=== PATIENT | female | born 1985 | race Caucasian/White ===

== ENCOUNTER 2016-07-19 23:30 | Inpatient (IN) ==
[~2016-07-19 23:30] MED LIST: Famotidine 20 MG/2 ML VIAL IVP PRN; Naloxone 0.4 MG/ML INJ IVP PRN; Ondansetron 4 MG/2 ML VIAL IVP PRN
[2016-07-19 23:39] LABS: Basophils % 0.1 %; Eosinophils % 0.1 %; Hematocrit 30.9 % (35.3-44.9); Hemoglobin 10.2 g/dL (11.5-15.4); Immature Granulocytes % 0.7 % (0-4); Lymphocytes % 19.7 %; Mean Corpuscular Hemoglobin 25.3 pg (28.0-33.3); Mean Corpuscular Volume 76.7 fL (83.0-100.0); Mean Platelet Volume 10.9 fL (9.4-12.4); Monocytes % 6.5 %; Platelet Count 300 K/mcL (140-400); Red Blood Count 4.03 M/mcL (3.82-4.97); Red Cell Distribution Width 16.3 % (11.5-14.5); Segmented Neutrophils % 72.9 %
[2016-07-19] MEDS ORDERED: Oxytocin 20 units/ LR 1000 mL 20 UNIT/1,000 ML BAG IVC ONE (23:57)
[2016-07-20] MEDS ORDERED: Ibuprofen 600 MG TABLET PO PRN (00:34)
[2016-07-20] MEDS ORDERED: Lanolin 28 GM TUBE TP PRN (00:37)
--- NOTE | 2016-07-20 00:40 | OB/GYN Procedure Note ---
Delivery - Delivery Date: 07/20/16 Provider: Hawa Kat Intrapartum events: none Delivery induction: none Delivery augmentation: rupture of membranes Delivery monitor: external FHT, external uterine Anesthesia: none Estimated Blood Loss: 200 - Repair Episiotomy: none Laceration Description: None - Complications Delivery complications: none - Disposition Mom disposition: stable in LDR disposition: stable in LDR - Comments Comments: Pt presented in active labor and progressed rapidly to complete dilation. AROM was performed for moderate amount clear fluid. She pushed well and underwent over intact perineum for viable male weighing 8lbs. 2oz. with apgars 8 at one minute and 9 at five minutes. After the cord stopped pulsing it was clamped and cut by the father. The placenta delivered spontaneous and intact. The vagina and perineum were found to be intact. Mother and baby are stable following delivery.
[2016-07-20] MEDS ORDERED: Oxytocin 20 units/ LR 1000 mL 20 UNIT/1,000 ML BAG IVC ONE ×2 (01:26→02:21)
[2016-07-20] MEDS ORDERED: Oxytocin 20 units/ LR 1000 mL 20 UNIT/1,000 ML BAG IV SCH (02:21)
[2016-07-20] MEDS ORDERED: Measles/Mumps/Rubella Vacc 0.5 ML VIAL SQ PRN (02:21)
[2016-07-20] MEDS ORDERED: Acetaminophen 325 MG TABLET PO PRN (02:21)
[2016-07-20] MEDS ORDERED: Rho Immune Globulin 1,500 UNIT SYRINGE IM PRN (02:21)
[2016-07-20] MEDS: Prenatal Vit/FA 1 EACH TABLET PO SCH (07:41)
--- NOTE | 2016-07-20 13:53 | OB/GYN History & Physical ---
Date of Encounter: 07/20/16 Time of Encounter: 00:00 Assessment and Plan (1) 38 weeks gestation of Current visit: Yes Status: Acute (2) Active labor at term Current visit: Yes Status: Acute Admit for expectant management. History of Present Illness Chief complaint: labor HPI: Ms. Kaur is a 31 year old female who presented at 38w6d with regular contractions. Good FM. No other complaints. labs: B positive antibody screen negative Rubella immune Hepatitis B negative Hepatitis C negative HIV nonreactive Pap had scant cells and needs repeated PP Chlam/Jermain: negative Anatomy scan: normal Glucola: normal GBS negative Past Med Surg Social Fam HX - Past Medical History Medical history: other Psychiatric history: no psych history - Past Surgical History Surgical History: no surgical history - Social History Smoking Status: Never smoker Smokeless Tobacco Status: No Alcohol use: none Drug use: none - Family History Mother Adopted: No Family Member Ethnicity: Non- Living Status: Still Living Hx Family Cardiac Disorders: No Hx Family Respiratory Disorders: No Hx Family Cancer: No Hx Family GI Disorders: No Hx Family Genitourinary Disorders: No Hx Family Endocrine Disorder: No Hx Family Musculoskeletal Disorders: No Hx Family Neuromuscular Disorders: No Hx Family Neurologic Disorders: No Hx Family HEENT Disorders: No Hx Family Autoimmune Disorders: No Hx Family Reproductive Disorders: No Hx Family Psychosocial Disorders: No Hx Family Medical Disorders: No Obstetrical History - Pregnancies : 6 Para: 5 Term: 5 Livin Medications and Allergies Pedi Multivit #22/Vit D3/Vit K [Multivitamins Chewables Tablet] 1 each PO DAILY 03/24/16 [History] Ranitidine HCl [Zantac] 150 mg PO DAILY 07/19/16 [History] Allergies No Known Allergies Allergy (Verified 03/24/16 14:36) Review of System OB All systems PM: reviewed and no additional remarkable complaints except as stated Exam - Vital Signs Vital signs: Initial Vital Signs Temp Pulse Resp BP Pulse Ox 98.3 F 78 16 128/71 99 07/20/16 03:00 07/20/16 03:00 07/20/16 03:00 07/20/16 03:00 07/20/16 03:00 - Constitutional Constitutional: well developed, well nourished - HEENT HEENT: Mucus Membranes Moist - Lungs Respiratory exam: CTAB - Cardiovascular Cardiovascular exam: RRR, +S1, +S2 - Abdomen Abdomen: Present: non tender - Extremities Extremities exam: normal inspection - Vulva Vulva: bilateral: normal - Anus/Rectum Anus/Rectum: Present: normal perianal skin Results Result Diagrams: 07/19/16 23:28 Abnormal lab results WBC 15.1 K/mcL (4.3-11.1) H 07/19/16 23:28 Hgb 10.2 g/dL (11.5-15.4) L 07/19/16 23:28 Hct 30.9 % (35.3-44.9) L 07/19/16 23:28 MCV 76.7 fL (83.0-100.0) L 07/19/16 23:28 MCH 25.3 pg (28.0-33.3) L 07/19/16 23:28 RDW 16.3 % (11.5-14.5) H 07/19/16 23:28 Neutrophils # 11.0 K/mcL (1.6-8.9) H 07/19/16 23:28 All other labs normal. - VTE Reasons for not Prescribing Prophylaxis: Treatment not Indicated - Low risk for VTE
[2016-07-20] MEDS: Ibuprofen 600 MG TABLET PO PRN ×2 (14:16→19:59)
[2016-07-21] MEDS: Ibuprofen 600 MG TABLET PO PRN ×2 (03:18→11:40)
[2016-07-21] MEDS: Prenatal Vit/FA 1 EACH TABLET PO SCH (07:44)
[2016-07-21 08:21] VITALS: BP 108/73
--- NOTE | 2016-07-21 08:45 | Discharge Summary ---
Date of Encounter: 07/21/16 Time of Encounter: 08:43 - Discharge Diagnosis (1) (normal spontaneous vaginal delivery) Priority: Primary Status: Acute Comments: Pt meeting milestones - Discharge Medications Prescriptions: Ibuprofen [Motrin] 600 mg PO Q6HR PRN #60 tablet PRN Reason: Pain Docusate [Colace] 100 mg PO BID #60 capsule Home Medications: Pedi Multivit #22/Vit D3/Vit K [Multivitamins Chewables Tablet] 1 each PO DAILY 03/24/16 [History] Ranitidine HCl [Zantac] 150 mg PO DAILY 07/19/16 [History] Docusate [Colace] 100 mg PO BID #60 capsule 07/21/16 [Rx] Ibuprofen [Motrin] 600 mg PO Q6HR PRN #60 tablet 07/21/16 [Rx] Allergies/Adverse Reactions: Allergies No Known Allergies Allergy (Verified 03/24/16 14:36) Data Procedures and tests throughout hospitalization: Laboratory Tests 07/19/16 23:28 WBC 15.1 H RBC 4.03 Hgb 10.2 L Hct 30.9 L MCV 76.7 L MCH 25.3 L MCHC 33.0 RDW 16.3 H Plt Count 300 MPV 10.9 Immature Gran % 0.7 Seg Neutrophils % 72.9 Lymphocytes % 19.7 Monocytes % 6.5 Eosinophils % 0.1 Basophils % 0.1 Neutrophils # 11.0 H Lymphocytes # 3.0 Monocytes # 1.0 Eosinophils # 0.0 Basophils # 0.0 Date of admission: 07/19/16 23:30 Primary care physician: PCP NO Consults: 07/20/16 02:21 Consult to Plate Setter [CONS] Routine Comment: Vaginal delivery, consult needed Discharging clinician: Hawa Kat Anticipated date of discharge: 07/21/16 - Patient Status Disposition: Home, Self-Care Condition: Good Functional capacity at discharge: independent ambulation Overall status at discharge: patient is progressing back to baseline - Discharge Instructions Follow Up With: SANAZ,PCP [Primary Care Provider] - Hawa Kat CNM [Non-Partnered Physician] - - Diet and Activity Activity: increase activity as tolerated Diet: advance to your usual diet Hospital Course Reason for admission: active labor Delivery: Episiotomy: none Laceration: none Other procedures: none complications: none Discharge diagnosis: IUP at term delivered baby: male Hospital course: - Delivery Date: 07/20/16 Provider: Hawa Kat Intrapartum events: none Delivery induction: none Delivery augmentation: rupture of membranes Delivery monitor: external FHT, external uterine Anesthesia: none Estimated Blood Loss: 200 - Repair Episiotomy: none Laceration Description: None - Complications Delivery complications: none - Disposition Mom disposition: home PPD#1 [place] disposition: home with mother, Time Attestation: Total time spent providing and/or coordinating discharge services: Time Spent: Less than 30 minutes Exam - Constitutional Vitals: Temp Pulse Resp BP Pulse Ox 98.4 F 68 16 108/73 97 07/21/16 07:40 07/21/16 07:40 07/21/16 07:40 07/21/16 07:40 07/21/16 07:40 General appearance IM: A&O X 3, pleasant, no acute distress - Respiratory Respiratory exam: Present: CTAB - Cardiovascular Cardiovascular exam IM: Present: RRR, +S1, +S2 - GI/Abdominal GI/Abdominal exam IM: soft - Rectal Rectal exam: deferred - Uterine Tone: Firm Uterus Position: 1 Finger Below Umbilicus - Extremities Exam Extremities exam IM: Present: normal inspection - Neurological Exam Neurological exam: normal gait, oriented X3 - Psychiatric Additional comments: reports good mood
== END 2016-07-21 15:25 | disposition home or self-care (01) | DRG 560 ==
LOC: 1NENULAB → 1NENUOBS 07-20 03:17
PROVIDERS: ADMIT Obstetrics & Gynecology; ATTEND Obstetrics & Gynecology

== ENCOUNTER 2021-03-18 18:21 | Observation (INO) ==
[2021-03-18 19:31] LABS: Bacteria,Urine Few per hpf (None-Few); Bilirubin,Urine Negative (Negative); Blood,Urine Negative (Negative); Clarity,Urine Turbid (Clear); Color,Urine Yellow (Yellow); Glucose,Urine (UA) Normal (Normal); Ketones,Urine Negative (Negative); Leukocyte Esterase,Urine Trace (Negative); Mucus,Urine Few per lpf (None-Few); Nitrite,Urine Negative (Negative); PH,Urine 6.5 pH Units (5.0-8.0); Protein,Urine 30 mg/dL (Neg-Trace); RBC,Urine 0-3 per hpf (0-3); Specific Gravity,Urine 1.025 (1.010-1.025); Squamous Epithelial Cell,Urine Moderate per hpf (None-Few)
== END 2021-03-18 20:10 | disposition home or self-care (01) ==
LOC: 1NENULAB
PROVIDERS: ADMIT Registered Nurse; ATTEND Registered Nurse

== ENCOUNTER 2021-05-21 06:58 | Inpatient (IN) ==
[2021-05-21 06:52] LABS: Basophils % 0.3 %; Eosinophils % 0.2 %; Hematocrit 35.4 % (35.3-44.9); Hemoglobin 11.5 g/dL (11.5-15.4); Immature Granulocytes % 0.6 % (0-4); Lymphocytes # 1.9 K/mcL (0.6-4.6); Lymphocytes % 19.4 %; Mean Corpuscular HGB Conc 32.5 g/dL (31.6-35.5); Mean Corpuscular Hemoglobin 27.9 pg (28.0-33.3); Mean Corpuscular Volume 85.9 fL (83.0-100.0); Mean Platelet Volume 11.9 fL (9.4-12.4); Monocytes # 0.7 K/mcL (0.0-1.3); Monocytes % 6.9 %; Neutrophils # 7.2 K/mcL (1.6-8.9); Platelet Count 199 K/mcL (140-400); Red Blood Count 4.12 M/mcL (3.82-4.97); Segmented Neutrophils % 72.6 %
[~2021-05-21 06:58] MED LIST changes: +*HR* Nalbuphine 10 MG/ML AMPUL IV PRN; +Metoclopramide 10 MG/2 ML VIAL IVP PRN; -Ondansetron 4 MG/2 ML VIAL IVP PRN; +Oxytocin 20 units/ LR 1000 mL 20 UNIT/1,000 ML BAG IVC SCH; +Ringers Solution, Lactated 1,000 ML IVC ONE; +Ringers Solution, Lactated 1,000 ML IVC SCH; +Ringers Solution, Lactated 1,000 ML ONE
[2021-05-21] MEDS ORDERED: Ibuprofen 600 MG TABLET PO ONE (08:31)
[2021-05-21] MEDS ORDERED: Ondansetron ODT 4 MG TAB.RAPDIS SL PRN (09:15)
[2021-05-21] MEDS ORDERED: Oxytocin 20 units/ LR 1000 mL 20 UNIT/1,000 ML BAG IVC SCH (09:15)
[2021-05-21] MEDS ORDERED: Prenatal Vit/FA 1 EACH TABLET PO SCH (09:15)
[2021-05-21] MEDS ORDERED: Benzocaine/Menthol 56 GM AEROSOL SPRAY TP PRN (09:15)
[2021-05-21] MEDS ORDERED: Lanolin 7 G OINT...G. TP PRN (09:15)
[2021-05-21] MEDS ORDERED: Ondansetron 4 MG/2 ML VIAL IVP PRN (09:19)
[2021-05-21] MEDS ORDERED: *HR* Oxytocin 10 UNIT/ML VIAL IM ONE (11:09)
[2021-05-21] MEDS ORDERED: Methylergonovine 0.2 MG/ML AMPUL IM ONE (11:09)
[2021-05-21] MEDS: Acetaminophen 325 MG TABLET PO SCH ×2 (11:42→19:31)
[2021-05-21 12:52] LABS: Amphetamine Screen,Urine Negative ng/mL (Cutoff=1000); Barbiturate Screen,Urine Negative ng/mL (Cutoff=200); Benzodiazepines Screen,Urine Negative ng/mL (Cutoff=200); Cannabinoid Screen,Urine Negative ng/mL (Cutoff = 50); Cocaine Screen,Urine Negative ng/mL (Cutoff= 300); Opiate Screen,Urine Negative ng/mL (Cutoff=300); Phencyclidine Screen,Urine Negative ng/mL (Cutoff=25)
[2021-05-21] MEDS: Ibuprofen 600 MG TABLET PO SCH ×2 (15:20→21:16)
[2021-05-21] MEDS ORDERED: *HR* HYDROcodone/Acet 5/325 mg TABLET PO ONE (21:59)
[2021-05-22] MEDS: Acetaminophen 325 MG TABLET PO SCH (03:39)
[2021-05-22] MEDS: Ibuprofen 600 MG TABLET PO SCH ×2 (03:39→08:43)
[2021-05-22 04:07] LABS: Basophils % 0.1 %; Eosinophils % 0.1 %; Hematocrit 23.8 % (35.3-44.9); Immature Granulocytes % 0.9 % (0-4); Lymphocytes # 2.8 K/mcL (0.6-4.6); Lymphocytes % 18.5 %; Mean Corpuscular HGB Conc 32.8 g/dL (31.6-35.5); Mean Corpuscular Hemoglobin 28.2 pg (28.0-33.3); Mean Corpuscular Volume 85.9 fL (83.0-100.0); Mean Platelet Volume 11.6 fL (9.4-12.4); Monocytes # 0.9 K/mcL (0.0-1.3); Monocytes % 6.2 %; Neutrophils # 11.3 K/mcL (1.6-8.9); Platelet Count 193 K/mcL (140-400); Red Blood Count 2.77 M/mcL (3.82-4.97); Red Cell Distribution Width 15.3 % (11.5-14.5); Segmented Neutrophils % 74.2 %; White Blood Count 15.2 K/mcL (4.3-11.1)
[2021-05-22 04:08] LABS: Hemoglobin 7.8 g/dL (11.5-15.4)
[2021-05-22 08:06] VITALS: BP 112/73; PULSE 85; TEMP 97.7; O2SAT 97
== END 2021-05-22 11:10 | disposition home or self-care (01) | DRG 807 ==
LOC: 1NENULAB → 1NENUOBS 11:14
PROVIDERS: ADMIT Advanced Practice Midwife; ATTEND Advanced Practice Midwife